=== PATIENT | female | born 2000 | race Caucasian/White ===

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

== ENCOUNTER 2018-01-21 14:17 | Emergency (ER) | payer SELFPAY ==
[~2018-01-21] VITALS: Ht 160 cm; Wt 94.9 kg
[2018-01-21 15:16] LABS: APPEARANCE CLEAR ((CLEAR)); BILIRUBIN NEGATIVE; BLOOD SMALL; COLOR YELLOW ((YELLOW)); GLUCOSE (STRIP) NEGATIVE; KETONES NEGATIVE; LEUKOCYTES NEGATIVE; NITRITE NEGATIVE; PROTEIN (STRIP) NEGATIVE; SPECIFIC GRAVITY 1.019 (1.000-1.030); UROBILINOGEN 0.2 MG/DL (0.2-1.0)
[2018-01-21 15:17] LABS: HEMATOCRIT 36.3 % (36.0-46.0); HEMOGLOBIN 11.1 G/DL (11.9-15.5); MCH 23.8 PG (29.0-34.0); MCHC 30.6 G/DL (30.0-36.0); MCV 77.7 FL (83-99); PLATELET COUNT 367 K/uL (156-360); RBC DIS.WIDTH-CV 15.1 % (11.8-14.6); RBC DIS.WIDTH-SD 42.2 % (39-53); RED BLOOD COUNT 4.67 M/uL (3.80-5.20); WHITE BLOOD COUNT 8.6 K/uL (4.1-10.2)
[2018-01-21 15:20] LABS: BACTERIA NONE SEEN /HPF; EPITHELIAL CELLS RARE /HPF; MUCUS TRACE /LPF; RED BLOOD CELLS 0-5 /HPF (0-5); WHITE BLOOD CELLS 0-5 /HPF (0-5)
[2018-01-21 15:32] LABS: ALBUMIN 4.3 g/dL (3.2-4.8)
[2018-01-21 15:33] LABS: CHLORIDE 106 mEq/L (99-109); SODIUM 139 mEq/L (136-147)
[2018-01-21 15:35] LABS: GLUCOSE 80 mg/dL (70-99); TOTAL PROTEIN 7.4 g/dL (6.4-8.3)
[2018-01-21 15:37] LABS: TOTAL BILIRUBIN 0.5 mg/dL (0.0-1.0)
[2018-01-21 15:38] LABS: ALKALINE PHOSPHATASE 58 IU/L (3-129)
[2018-01-21 15:39] LABS: CREATININE 0.8 mg/dL (0.6-1.3); GFR ESTIMATE (CALCULATED) > 59 mL/min/
[2018-01-21 15:40] LABS: AST (GOT) 14 IU/L (2-34); UREA NITROGEN (BUN) 9 mg/dL (9-23)
[2018-01-21 15:42] LABS: ALT (GPT) 25 IU/L (3-49)
[2018-01-21] MEDS ORDERED: FIORICET 50-301 EAC1 PO (15:47)
[2018-01-21 16:03] VITALS: BP 146/80
== END 2018-01-21 16:04 | disposition home or self-care (01) ==
LOC: EME 14:17
PROVIDERS: Physician Assistant
DX: R51 Headache (principal)
CPT/HCPCS: 80053; 81003; 85027; 99281; 99284; J0780; J1885; J7030

== ENCOUNTER 2018-03-04 22:12 | Emergency (ER) | payer SELFPAY ==
[~2018-03-04] VITALS: Ht 160 cm; Wt 98.8 kg
[~2018-03-04 22:12] MED LIST changes: +FIORICET 50-301 EAC1 PO
[2018-03-05 02:14] VITALS: BP 114/73
== END 2018-03-05 02:16 | disposition home or self-care (01) ==
LOC: EME 22:12
DX: G43.909 Migraine, unspecified, not intractable, without status migrainosus (principal)
CPT/HCPCS: 99281; 99285; J0780; J1200; J1885; J7030